=== PATIENT | male | born 1960 | race African-American/Black ===

== ENCOUNTER 2017-05-15 05:56 | Inpatient (IN) | END 2017-05-18 13:00 | disposition home or self-care (01) | DRG 291 ==

== ENCOUNTER 2018-02-19 09:19 | Emergency (ER) | END 2018-02-19 12:00 | disposition home or self-care (01) ==

== ENCOUNTER 2018-04-06 09:28 | Emergency (ER) | END 2018-04-06 16:46 | disposition home or self-care (01) ==

== ENCOUNTER 2018-12-24 06:02 | Emergency (ER) | payer MEDICAID, MEDICARE, OTHER ==
[~2018-12-24] VITALS: Ht 170.2 cm; Wt 95.5 kg
[~2018-12-24 06:02] MED LIST: ASPI325T30 PO; ATOR20TA17 PO; CARV12.540 PO; CEPH-443 PO; CLOP75TA19 PO; FAMO40TA66 PO; FOLI-49 PO; HYDR-4011 PO; LISI10TA2 PO; NEPH PO; NICO-544 TRANSDERM
[2018-12-24 06:11] VITALS: Ht 170.2 cm; Wt 95.5 kg
[2018-12-24] MEDS ORDERED: THIAMINE 100 MG TAB PO ONE (07:30)
[2018-12-24] MEDS ORDERED: HYDROCODONE/APAP (5/325) TAB PO ONE (07:30)
[2018-12-24] MEDS ORDERED: FOLIC ACID 1 MG TAB PO ONE (07:30)
--- NOTE | 2018-12-24 07:34 | ERD ---
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 The patient reportedly has not followed up with his orthopedic surgeon since the surgery. He reports intermittent moderate sharp stabbing pains to the stump of the BKA. He does not endorse any redness or warmth or swelling or induration or purulence or fluctuance. The patient is not been able to get his pain under control at home, which is ultimately what prompted him to come to the emergency department via ambulance this morning. The patient denies feeling sick recently. The patient denies fever or chills. The patient has had no headache or vision changes. The patient does not endorse neck or back pain. The patient denies lightheadedness or dizziness. The patient has had no chest pain or trouble breathing. The patient denies nausea or vomiting. The patient denies abdominal pain. The patient denies changes to bowel movements or urination. The patient has had no focal deficits. The patient has had no weakness or numbness or tingling to the face or extremities. The patient does report chronic right upper extremity edema, beginning approximately 2 months ago. He does not report that this has been evaluated previously. The patient's orthopedic surgeon was Dr. Carter. He reports having the surgery performed at [facility]. ROS All systems reviewed and are negative except as per history of present illness. Medications Home Meds Active Scripts Hydrocodone/Acetaminophen ([place] 5-325 Tablet) 1 Each Tablet, 1 TAB PO QHS PRN for PAIN, #7 TAB Prov:GEOVANNA CHAMBERS MD 02/19/18 Cephalexin* (Keflex*) 500 Mg Capsule, 500 MG PO QID for 7 Days, CAP Prov:GEOVANNA CHAMBERS MD 02/19/18 Nicotine* (Nicotine* Patch) 7 mg/day Patch, 1 PATCH TRANSDERM DAILY for 30 Days, #30 EA Prov:ANDREEA GUSTAFSON MD 05/18/17 Reported Medications Multivit/Ca Carb/B Cmplx/Fa* (Gia-Aixa*) 1 Tab Tab, 1 TAB PO DAILY, TAB 01/29/14 Famotidine* (Pepcid*) 40 Mg Tablet, 1 TAB PO BID 04/25/12 Atorvastatin (Lipitor) 20 Mg Tablet, 20 MG PO HS 03/20/12 Lisinopril* (Lisinopril*) 10 Mg Tablet, 10 MG PO DAILY 03/20/12 Clopidogrel Bisulfate (Plavix) 75 Mg Tablet, 75 MG PO DAILY 09/21/11 Aspirin* (Aspirin*) 325 Mg Tablet, 325 MG PO DAILY 09/21/11 Carvedilol* (Coreg*) 12.5 Mg Tablet, 6.25 MG PO BID 09/21/11 Folic Acid* (Folic Acid*) 1 Mg Tablet, 1 TAB PO DAILY 08/27/10 Allergies Allergies: Coded Allergies: No Known Allergies (Verified Allergy, Mild, 01/29/14) PMhx/Soc History of Surgery: Yes (AV fistula) Anesthesia Reaction: No Hx Neurological Disorder: No Hx Respiratory Disorders: Yes Hx Cardiac Disorders: Yes (CKD, DM) Hx Psychiatric Problems: No Hx Miscellaneous Medical Probl: No Hx Alcohol Use: Yes (daily) Hx Substance Use: No Hx Tobacco Use: Yes (pack/day) Smoking Status: Current every day smoker FmHx Family History: diabetes Physical Exam Vitals Vital Signs Date Temp Pulse Resp B/P (MAP) Pulse Ox O2 O2 Flow FiO2 Time Delivery Rate 12/24/18 98.9 85 19 140/85 100 06:11 (103) Physical Exam Const: No apparent distress, well-developed, well-nourished Head: Normocephalic, Atraumatic Eyes: Normal Conjunctiva. Extraocular movements intact. ENT: Normal External Ears, Nose. Dry mucous membranes. Neck: Full range of motion. No meningismus. Resp: Clear to auscultation bilaterally, No wheezes, rales or rhonchi Cardio: Regular rate and rhythm. No murmurs, rubs or gallops Abd: Soft, non tender, non distended. Normal bowel sounds Skin: No petechiae or rashes Back: No midline tenderness. No CVA tenderness Ext: No cyanosis. Right upper extremity 1+ pitting edema without tenderness or warmth or erythema or fluctuance or purulence. Right BKA with appropriate appearing stump, kasie still in place, pinpoint tenderness to the anterior aspect of the stump, no edema or erythema or warmth or induration or fluctuance or purulence. Neur: Awake and alert, oriented 4. Dysarthria evident. No facial droop. Normal strength, sensation and coordination. Psych: Normal Mood and Affect Result Diagram: 12/24/18 0648 12/24/18 0648 Results 24 hrs Laboratory Tests Test 12/24/18 06:47 12/24/18 06:48 Erythrocyte Sedimentation Rate 45 mm/Hr White Blood Count 6.5 10^3/ul Red Blood Count 3.05 10^6/ul Hemoglobin 10.1 g/dl Hematocrit 32.4 % Mean Corpuscular Volume 106.2 fl Mean Corpuscular Hemoglobin 33.1 pg Mean Corpuscular Hemoglobin Concent 31.2 g/dl Red Cell Distribution Width 16.0 % Platelet Count 274 10^3/UL Mean Platelet Volume 9.4 fl Immature Granulocytes % 0.300 % Neutrophils % 72.8 % Lymphocytes % 15.9 % Monocytes % 7.3 % Eosinophils % 3.2 % Basophils % 0.5 % Nucleated Red Blood Cells % 0.0 /100WBC Immature Granulocytes # 0.020 10^3/ul Neutrophils # 4.7 10^3/ul Lymphocytes # 1.0 10^3/ul Monocytes # 0.5 10^3/ul Eosinophils # 0.2 10^3/ul Basophils # 0.0 10^3/ul Nucleated Red Blood Cells # 0.0 10^3/ul Sodium Level 137 mmol/L Potassium Level 5.4 mmol/L Chloride Level 93 mmol/L Carbon Dioxide Level 33 mmol/L Anion Gap 11 Blood Urea Nitrogen 51 mg/dl Creatinine 7.41 mg/dl Est Glomerular Filtrat Rate mL/min 9 mL/min Glucose Level 112 mg/dl Calcium Level 10.0 mg/dl C-Reactive Protein 0.9 mg/dl Current Medications Medications Dose Sig/Armen Start Time Status Last (Trade) Ordered Route PRN Stop Time Admin Dose Reason Admin Thiamine 100 mg ONCE ONCE 12/24/18 DC 12/24/18 HCl PO 07:30 07:33 (Vitamin B1) 12/24/18 07:31 Folic Acid 1 mg ONCE ONCE 12/24/18 DC 12/24/18 (Folic Acid) PO 07:30 07:33 12/24/18 07:31 1 tab ONCE ONCE 12/24/18 DC 12/24/18 Acetaminophen PO 07:30 07:35 / 12/24/18 07:32 Hydrocodone Bitart ([place] (5/325)) Procedures/MDM MDM The patient's presentation warrants further investigation. Previous medical records, if available, were reviewed. LABS The patient's laboratory testing was obtained and reviewed. No emergent treatment was required unless described below. CBC: No E/o systemic infection or thrombocytopenia. Macrocytic anemia, not emergent Chemistry: Elevated BUN and creatinine in line with end-stage renal disease. Chronic metabolic alkalosis. Mild hyperkalemia, not emergent. No E/o diabetic ketoacidosis CRP: Unremarkable ESR: Unremarkable IMAGING Imaging and Radiology interpretation reviewed. Ultrasound right upper extremity FINDINGS: There is normal compressibility and flow within the right internal jugular, subclavian, axillary, brachial, radial and ulnar veins. The basilic and cephalic veins were not well visualized in the proximal upper extremity but appear to have normal compressibility and flow within the forearm. IMPRESSION: No sonographic evidence for right upper extremity deep venous thrombosis. Electronically viewed and signed by Jeet Cuevas MD, MD on 12/24/2018 07:16 X-ray right tib-fib FINDINGS: Postsurgical changes and below knee amputation at the tibial metadiaphysis. No destructive bone lesions. Joint spaces and alignment are maintained. There is minor degenerative spurring over the anterior patella. Vascular calcifications noted throughout the soft tissues. Generalized soft tissue swelling with skin kasie in place, soft tissues otherwise unremarkable. IMPRESSION: Postsurgical changes and below knee amputation. Soft tissue swelling, skin kasie in place. Peripheral atherosclerosis. Electronically viewed and signed by Physician Veronica on 12/24/2018 08:17 TREATMENT/DISPOSITION The patient presents for exacerbated right BKA stump pain. I do not suspect osteomyelitis. There is no new ulceration. I do not see evidence of abscess or cellulitis or any soft tissue infection. The patient still has the kasie in the wound. We offered to remove them, but he declined. I do not suspect acute emergent fracture dislocation. There is no evidence of new trauma. He reports that the surgery happened approximately 2 months ago. He has not followed up with his orthopedic surgeon since the surgery. He was highly encouraged to schedule a follow-up appointment with Dr. Carter. The patient was given [place] in the emergency department for pain control. The patient does have a history of alcoholism. He has a mild macrocytic anemia today. He does not require any emergent transfusion. The patient was given thiamine and folate in the emergency department. He is encouraged to take a multivitamin daily. The patient also has evidence of end-stage renal disease. The lab work indicates sequelae from renal disease, which does not require emergent treatment. DISCHARGE Upon reevaluation of the patient, symptoms have improved. No emergent diagnoses were identified. At this time, I feel that the patient stable for discharge. The patient was instructed to follow-up with a primary care physician in 1-3 days. The patient will be given strict precautions with which to return to the emergency department. Prescriptions: None. The [employer] database was accessed. The patient got a prescription for 30 tablets of hydrocodone with acetaminophen 12 days ago. The patient needs to follow-up with his primary or specialist physicians who can treat his chronic pain longitudinally. I do not feel that it is appropriate to continue to obtain opiate prescriptions from the emergency department. The patient's blood pressure was elevated at greater than 120/80 while in the emergency department. The patient was otherwise stable with no evidence of hypertensive urgency or emergency. The patient does not require admission for blood pressure control. I have discussed with the patient the risks of hypertension. I have instructed the patient to return to the ER for any new or worsening symptoms including chest pain, shortness of breath, headache, blurred vision, confusion, nausea, vomiting or LOC. I have advised the patient to follow up with the primary care physician for outpatient monitoring and treatment for hypertension in 1-3 days. DISCLAIMER Inadvertent spelling and grammatical errors are likely due to EHR/dictation software use and do not reflect on the overall quality of patient care. Note that the electronic time recorded on this note does not necessarily reflect the actual time of the patient encounter. Departure Diagnosis: Primary Impression: Leg pain, right Additional Impressions: Postoperative complication Surgical complication system/body Area: musculoskeletal system Surgical complication type: unspecified Procedure type: musculoskeletal Qualified Codes: M96.89 - Other intraoperative and postprocedural complications and disorders of the musculoskeletal system BKA stump complication Macrocytic anemia End stage renal disease on dialysis Hyperkalemia Metabolic alkalosis Condition: Stable Patient Instructions: Managing Post-Op Pain at Home: Medications, Managing Post-Op Pain at Home: Non-Medication Relief Additional Instructions: Thank you for for coming to [facility] for your care today. Please ask your nurse or provider if you have questions about your care today and do not leave until all your questions have been answered. Please use any medications given as directed and follow-up with your doctor (or the doctor you were referred to) in the next 1-3 days. If you do not have a primary care doctor you may follow up at the [facility] or [facility] (listed below). You may also use motrin and tylenol as needed for fever and/or pain unless instructe d otherwise by your provider or nurse. Indications for more urgent follow-up have been discussed, but you may return to the Emergency Department at ANY time for any worrisome or worsening symptoms. If you have abdominal pain, please know that no test or exam you received is perfect and you should follow up within 8 hours for continued pain. If you had any imaging studies today, such as an X-Ray or CT Scan, these studies will be reviewed later by a radiologist. You will be called if there are i mportant findings that were not identified today, so make sure the contact information you provided at registration is correct. If you received any narcotic pain control medicine today, such as Vicodin, Morphine or Dilaudid, your coordination and judgment may be affected for a number of hours. Please do not drive or operate heavy machinery, and you may want someone to assist you at home. If you were given a prescription for narcotic medication, be aware that it is very addictive- use sparingly and only if necessary. PLEASE SEEK FURTHER EVALUATION AND MANAGEMENT AT YOUR DOCTORS OFFICE WITHIN THE NEXT 1-3 DAYS. IT IS YOUR RESPONSIBILITY TO MAKE AN APPOINTMENT FOR FOLOW-UP CARE. IF YOU HAVE A PRIMARY DOCTOR, PLEASE CALL THEIR OFFICE TO SCHEDULE AN APPOINTMENT FOR FOLLOW UP. IF YOU DO NOT HAVE A PRIMARY DOCTOR YOU CAN CALL OUR PHYSICIAN REFERRAL HOTLINE AT IF YOU CAN NOT AFFORD TO SEE A PHYSICIAN YOU CAN CHOSE FROM THE FOLLOWING [facility] OR [facility], [facility] [address] [facility] [address] [facility]. [facility] [address] [facility] [address] [facility] [address] [facility] [id number] [place] [id number] [facility] [address] [place] [address] PÉREZ CRENSHAW MD Dec 24, 2018 07:18
[2018-12-24 09:37] VITALS: BP 156/96; PULSE 109; RESP 18
== END 2018-12-24 09:50 | disposition home or self-care (01) ==
LOC: E/R 06:02
DX: M96.89 Other intraoperative and postprocedural complications and disorders of the musculoskeletal system (principal); N18.6 End stage renal disease; E11.22 Type 2 diabetes mellitus with diabetic chronic kidney disease; I12.0 Hypertensive chronic kidney disease with stage 5 chronic kidney disease or end stage renal disease; T87.89 Other complications of amputation stump; E87.5 Hyperkalemia; E87.3 Alkalosis; D53.9 Nutritional anemia, unspecified; F17.210 Nicotine dependence, cigarettes, uncomplicated; Y65.8 Other specified misadventures during surgical and medical care; Z79.82 Long term (current) use of aspirin; Z79.01 Long term (current) use of anticoagulants; Z99.2 Dependence on renal dialysis; Z86.73 Personal history of transient ischemic attack (TIA), and cerebral infarction without residual deficits
CPT/HCPCS: 73590; 80048; 85025; 85651; 86140; 93971